=== PATIENT | male | born 1960 | race Caucasian/White ===

== ENCOUNTER 2017-08-23 10:48 | Emergency (ER) | payer MEDICARE ==
[~2017-08-23] VITALS: Ht 175.3 cm; Wt 72.7 kg
[~2017-08-23 10:48] MED LIST: SUBO2MIS SL
[2017-08-23 10:49] VITALS: BP 167/111; PULSE 86; RESP 18; TEMP 98.2; O2SAT 98
[2017-08-23] MEDS ORDERED: PROPRANOLOL HCL 10 MG TAB PO ONE (11:45)
[2017-08-23 12:00] VITALS: O2SAT 98
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
[2017-08-23 13:40] VITALS: BP 143/90; PULSE 66; RESP 18; O2SAT 98
[2017-08-23 13:51] LABS: AUTOMATED NEUTROPHIL # 4.9 TH/MM3 (1.8-7.7); BASOPHIL # 0.1 TH/MM3 (0-0.2); BASOPHIL % 0.9 % (0.0-2.0); EOSINOPHIL # 0.1 TH/MM3 (0-0.4); EOSINOPHIL % 0.9 % (0.0-4.0); HEMATOCRIT 43.9 % (39.0-51.0); HEMOGLOBIN 15.3 GM/DL (13.0-17.0); LYMPH % 19.2 % (9.0-44.0); LYMPHOCYTE # 1.3 TH/MM3 (1.0-4.8); MEAN CELL VOLUME 99.8 FL (80.0-100.0); MEAN CORPUSCULAR HEMOGLOBIN 34.7 PG (27.0-34.0); MEAN CORPUSCULAR HGB CONC 34.7 % (32.0-36.0); MEAN PLATELET VOLUME 7.1 FL (7.0-11.0); MONO % 6.1 % (0.0-8.0); MONOCYTE # 0.4 TH/MM3 (0-0.9); NEUT % 72.9 % (16.0-70.0); PLATELET COUNT 287 TH/MM3 (150-450); RED CELL DISTRIBUTION WIDTH 13.4 % (11.6-17.2); WHITE BLOOD COUNT 6.7 TH/MM3 (4.0-11.0)
[2017-08-23] MEDS ORDERED: VIST25CA PO (13:51)
[2017-08-23] MEDS ORDERED: PROP10TA6 PO (13:51)
[2017-08-23 14:07] LABS: CALCIUM 9.1 MG/DL (8.5-10.1); CREATININE 0.83 MG/DL (0.60-1.30)
[2017-08-23 14:53] VITALS: BP 142/86
--- NOTE | 2017-08-24 22:13 | EKG ---
Date Performed: 08/23/2017 Time Performed: 12:25:40 PTAGE: 56 years EKG: Sinus rhythm INCOMPLETE RIGHT BUNDLE BRANCH BLOCK BORDERLINE ECG PREVIOUS TRACING : 02/27/2013 10.45 Since the prior tracing, there has been no significant lucero DOCTOR: Artie Escamilla Interpretating Date/Time 08/24/2017 22:11:44
== END 2017-08-23 14:54 | disposition home or self-care (01) ==
LOC: NEPD 10:48
DX: F41.9 Anxiety disorder, unspecified (principal); F17.210 Nicotine dependence, cigarettes, uncomplicated; Z79.899 Other long term (current) drug therapy
CPT/HCPCS: 80048; 84443; 85025; 93005; 99284